=== PATIENT | male | born 1990 | race Caucasian/White ===

== ENCOUNTER → 2020-07-04 | Outpatient (CLI) | payer OTHER ==
[~2020-07-04] MED LIST: LORAZEPAM INJ 2 MG/ML VIAL ONE
== END ==
LOC: MRI 06-20 07:43
PROVIDERS: ATTEND Psychiatry & Neurology Neurology
DX: M54.2 Cervicalgia (principal); R20.0 Anesthesia of skin; F33.1 Major depressive disorder, recurrent, moderate; B06.0 Rubella with neurological complications; M25.562 Pain in left knee; F43.10 Post-traumatic stress disorder, unspecified; Z63.0 Problems in relationship with spouse or partner
CPT/HCPCS: 72141; J2060